=== PATIENT | male | born 1950 | race Caucasian/White ===

== ENCOUNTER 2017-01-29 13:45 | Inpatient (IN) ==
[2017-01-29] MEDS ORDERED: Ipratropium/Albuterol Neb 3 ML IH ONE (14:02)
[2017-01-29] MEDS: 0.9 % Sodium Chloride 1,000 ML IVC SCH ×2 (14:11→15:49)
[2017-01-29 14:21] LABS: Basophils # 0.1 K/mcL (0.0-0.2); Basophils % 1.1 %; Eosinophils # 1.2 K/mcL (0.0-0.6); Eosinophils % 13.3 %; Hematocrit 43.7 % (37.5-50.1); Hemoglobin 15.3 g/dL (12.9-16.9); Immature Granulocytes % 0.2 % (0-4); Lymphocytes # 2.7 K/mcL (0.6-4.6); Lymphocytes % 29.3 %; Mean Corpuscular Hemoglobin 32.3 pg (28.0-33.3); Mean Corpuscular Volume 92.2 fL (83.0-100.0); Mean Platelet Volume 10.2 fL (9.4-12.4); Monocytes # 0.5 K/mcL (0.0-1.3); Monocytes % 5.5 %; Neutrophils # 4.7 K/mcL (1.6-8.9); Platelet Count 313 K/mcL (140-400); Red Blood Count 4.74 M/mcL (4.19-5.50); Red Cell Distribution Width 13.4 % (11.5-14.5); Segmented Neutrophils % 50.6 %
[2017-01-29] MEDS ORDERED: *HR* FentaNYL (PF) 100 MCG/2 ML VIAL IVP ONE (14:33)
[2017-01-29 15:01] LABS: Bilirubin,Urine Negative (Negative); Blood,Urine Negative (Negative); Clarity,Urine Clear (Clear); Color,Urine Yellow (Yellow); Glucose,Urine (UA) Normal (Normal); Ketones,Urine Negative (Negative); Leukocyte Esterase,Urine Negative (Negative); Nitrite,Urine Negative (Negative); Protein,Urine Negative (Neg-Trace); Specific Gravity,Urine 1.005 (1.010-1.025); Urobilinogen,Urine Normal (Normal)
--- NOTE | 2017-01-29 15:18 | Emergency Department Note ---
Disposition Clinical Impression: Acute exacerbation of chronic obstructive airways disease, Mucus plugging of bronchi, Weight loss, Night sweats Disposition: Admitted As Inpatient Condition: Fair Time of Disposition: 17:34 SOB HPI - General Chief Complaint: ED Shortness of Breath/Dyspnea Stated Complaint: JOSIAS Time Seen by Provider: 01/29/17 13:50 Source: patient, family Limitations: no limitations Nursing Notes Reviewed: Yes Vital Signs Reviewed: Yes - History of Present Illness Patient presents to the ED with the chief complaint of shortness of breath. Patient reports that over the past several months he has had gradually increasing shortness of breath. States that he has been evaluated twice, including CT angiography of his chest, which was normal. 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 States that his shortness of breath has been gradually increasing over the last several months, but is getting to the point now where he is losing most of his ability to get up and do the things that he likes to do. He is also been complaining of subjective fever and chills as well as upper Of cough at times. He also has had a 30-40 pound weight loss in this time frame that has been unintentional. He has some nausea and vague abdominal discomfort. States that his stools have also become very thin and pencillike. States that he had a colonoscopy previously, which was normal. He states that he just does not feel well and he feels very rundown and tired. Patient was going to be admitted last time he was here. However, he refused and states he would like to be admitted at this time. - Related Data Home Medications Medication Instructions Recorded Confirmed Cilostazol [Pletal] 100 mg PO BID 11/03/16 01/29/17 Clopidogrel [Plavix] 75 mg PO DAILY 11/03/16 01/29/17 Tizanidine HCl 4 mg PO Q8H PRN 11/03/16 01/29/17 diazePAM [Valium] 20 mg PO 11/03/16 01/29/17 Albuterol Neb [Proventil Neb] 2.5 mg IH Q4HR PRN 12/27/16 01/29/17 Doxepin HCl [Doxepin HCl] 50 - 100 mg PO 12/27/16 01/29/17 Duloxetine HCl [Cymbalta] 60 mg PO DAILY 12/27/16 01/29/17 Lactose-Reduced Food [Ensure 1 bottle PO TID 12/27/16 01/29/17 Liquid] Losartan Potassium [Cozaar] 100 mg PO DAILY 12/27/16 01/29/17 Metoprolol Succinate 100 mg PO DAILY 12/27/16 01/29/17 Oxycodone HCl [Oxycontin] 20 mg PO QAM 12/27/16 01/29/17 Oxycodone HCl [Oxycontin] 40 mg PO QPM 12/27/16 01/29/17 Polyethylene Glycol 3350 [MiraLAX] 17 gm PO DAILY 12/27/16 01/29/17 Albuterol Sulfate [Ventolin Hfa] 2 puff IH Q4H PRN 01/29/17 01/29/17 Allergies Allergy/AdvReac Type Severity Reaction Status Date / Time aspirin Allergy Hives Verified 01/29/17 13:49 buprenorphine Allergy Difficulty Verified 01/29/17 13:50 Swallowing Penicillins Allergy Hives Verified 01/29/17 13:49 All systems ED: reviewed and negative except as stated. Constitutional: Reports: as per HPI, fever, chills, weakness, weight change, night sweats Eyes: Denies: vision change ENT ED: Denies: throat pain, dysphagia Cardiovascular: Denies: chest pain Respiratory: Reports: cough, dyspnea, sputum production. Denies: hemoptysis Gastrointestinal: Reports: as per HPI, abdominal pain, nausea. Denies: vomiting Genitourinary: Denies: dysuria Musculoskeletal: Denies: back pain Integumentary: Denies: rash Neurological: Denies: headache Endocrine: Reports: fatigue Past Medical History - Past Medical History Attestation: Yes The following information was validated with the patient. Source: patient Medical history: Reports: COPD, hypertension Psychiatric history: Reports: anxiety, depression - Social History Smoking Status: Current every day smoker Smokeless Tobacco Status: No Alcohol use: Reports: none Drug use: Reports: none Physical Exam - General Limitations: no limitations General appearance: alert, in no apparent distress, other (appears ill but non- toxic ) - Head Head exam: atraumatic, normocephalic, normal inspection - Eye Eye exam: Present: normal appearance, PERRL, EOMI - ENT ENT exam: normal exam, normal oropharynx, mucous membranes moist - Neck Neck exam: Present: normal inspection, full ROM, trachea midline. Absent: tenderness, meningismus - Chest Chest inspection: Present: normal inspection, symmetric chest wall rise - Respiratory Respiratory exam: Present: respiratory distress (mild ), other (Rhonchi in the left upper lobe and wheezing throughout, mild accessory muscle use and mild tachypnea ). Absent: normal lung sounds bilaterally - Cardiovascular Cardiovascular exam: Present: tachycardia, normal heart sounds - Abdominal Exam Abdominal exam: Present: soft, tenderness, normal bowel sounds. Absent: Non- Tender, distention, guarding, rebound, rigidity Abdominal tenderness: Present: RUQ, epigastrium, mild - Extremities Exam Extremities exam: Present: normal inspection, full ROM, normal capillary refill. Absent: tenderness, pedal edema - Neurological Exam Neurological exam: Present: alert, oriented X3 - Psychiatric Psychiatric exam: Present: normal affect, normal mood - Skin Skin exam: Present: warm, dry, intact, normal color Course Course Narrative: Patient presenting with gradual increasing shortness of breath, weight loss, night sweats, nausea. Has had previous workups which have not revealed any acute abnormality. Patient does appear ill. I am concern over potential malignancy. Could also be related to PE, although he has had a normal CT previously. He is not hypotensive, but is tachycardic. His lungs are very congested, although his chest x-ray is normal. We will await labs and likely obtain further imaging of his chest, abdomen and pelvis. Patient and family are agreeable to plan. Patient will be admitted. - Reevaluation(s) Reevaluation #1: Patient with bilateral mucous plugging, chronic pancreatitis, and distal esophagus mural thickening. Patient also intermittently hypoxic requiring oxygen. We will admit to the hospitalist service with routine pulmonary consult. I do still suspect that the patient could have something else going on and do think inpatient workup would be beneficial. Patient family agreeable to plan Vital Signs Temperature 97.4 F L 01/29/17 13:47 Pulse Rate 102 01/29/17 13:47 Respiratory Rate 22 01/29/17 13:47 Blood Pressure 108/76 01/29/17 13:47 O2 Sat by Pulse Oximetry 95 01/29/17 13:47 Temperature 97.4 F L 01/29/17 13:47 Pulse Rate 73 01/29/17 17:18 Respiratory Rate 18 01/29/17 17:18 Blood Pressure 98/61 01/29/17 17:18 O2 Sat by Pulse Oximetry 96 01/29/17 17:18 Oxygen Delivery Oxygen Delivery Nasal Cannula Shortness of Breath/Dyspnea - Medical Records Medical records reviewed: Yes I reviewed the patient's medical records. - Lab Data Lab results reviewed: Yes I reviewed the patient's lab results. Result diagrams: 01/29/17 14:00 01/29/17 14:00 Lab Results 01/29/17 01/29/17 01/29/17 Range/Units 14:00 14:00 14:00 WBC 9.2 (4.3-11.1) K/mcL RBC 4.74 (4.19-5.50) M/mcL Hgb 15.3 (12.9-16.9) g/dL Hct 43.7 (37.5-50.1) % MCV 92.2 (83.0-100.0) fL MCH 32.3 (28.0-33.3) pg MCHC 35.0 (31.6-35.5) g/dL RDW 13.4 (11.5-14.5) % Plt Count 313 (140-400) K/mcL MPV 10.2 (9.4-12.4) fL Immature Gran % 0.2 (0-4) % Seg Neutrophils % 50.6 % Lymphocytes % 29.3 % Monocytes % 5.5 % Eosinophils % 13.3 % Basophils % 1.1 % Neutrophils # 4.7 (1.6-8.9) K/mcL Lymphocytes # 2.7 (0.6-4.6) K/mcL Monocytes # 0.5 (0.0-1.3) K/mcL Eosinophils # 1.2 H (0.0-0.6) K/mcL Basophils # 0.1 (0.0-0.2) K/mcL Sodium 139 (136-145) mEq/L Potassium 3.3 L (3.5-4.5) mEq/L Chloride 113 H (98-109) mEq/L Carbon Dioxide 16 L (19-29) mEq/L BUN 10 (8-26) mg/dL Creatinine 0.70 L (0.72-1.25) mg/dL Est GFR ( Amer) > 60 (> 60) Est GFR (Non-Af Amer) > 60 (> 60) BUN/Creatinine Ratio 14 (6-26) Glucose 98 (70-99) mg/dL Calculated Osmolality 287 (280-300) Lactic Acid (0.5-2.2) mmol/L Calcium 7.4 L (8.6-10.8) mg/dL Phosphorus 1.9 L (2.3-4.7) mg/dL Magnesium 1.5 L (1.6-2.6) mg/dL Total Bilirubin 0.3 (0.2-1.2) mg/dL Direct Bilirubin 0.2 (0.0-0.5) mg/dL Indirect Bilirubin 0.1 (0.0-1.2) mg/dL AST 11 (5-34) Units/L ALT 10 (0-55) Units/L Alkaline Phosphatase 74 (38-126) Units/L Troponin I (0-0.03) ng/mL B-Natriuretic Peptide (0-100) pg/mL Serum Total Protein 5.5 L (6.0-8.3) g/dL Albumin 3.2 L (3.5-5.0) g/dL Globulin 2.3 L (2.4-3.5) g/dL Albumin/Globulin Ratio 1.4 (1.1-2.2) Lipase 13 (8-78) Units/L Urine Color Yellow (Yellow) Urine Clarity Clear (Clear) Urine pH 7.0 (5.0-8.0) pH Units Ur Specific [place] 1.005 L (1.010-1.025) Urine Protein Negative (Neg-Trace) mg/dL Urine Glucose (UA) Normal (Normal) mg/dL Urine Ketones Negative (Negative) mg/dL Urine Blood Negative (Negative) Urine Nitrite Negative (Negative) Urine Bilirubin Negative (Negative) Urine Urobilinogen Normal (Normal) mg/dL Ur Leukocyte Esterase Negative (Negative) Ur Culture Indicated? NO (NO) 01/29/17 01/29/17 01/29/17 Range/Units 14:00 14:00 14:00 WBC (4.3-11.1) K/mcL RBC (4.19-5.50) M/mcL Hgb (12.9-16.9) g/dL Hct (37.5-50.1) % MCV (83.0-100.0) fL MCH (28.0-33.3) pg MCHC (31.6-35.5) g/dL RDW (11.5-14.5) % Plt Count (140-400) K/mcL MPV (9.4-12.4) fL Immature Gran % (0-4) % Seg Neutrophils % % Lymphocytes % % Monocytes % % Eosinophils % % Basophils % % Neutrophils # (1.6-8.9) K/mcL Lymphocytes # (0.6-4.6) K/mcL Monocytes # (0.0-1.3) K/mcL Eosinophils # (0.0-0.6) K/mcL Basophils # (0.0-0.2) K/mcL Sodium (136-145) mEq/L Potassium (3.5-4.5) mEq/L Chloride (98-109) mEq/L Carbon Dioxide (19-29) mEq/L BUN (8-26) mg/dL Creatinine (0.72-1.25) mg/dL Est GFR ( Amer) (> 60) Est GFR (Non-Af Amer) (> 60) BUN/Creatinine Ratio (6-26) Glucose (70-99) mg/dL Calculated Osmolality (280-300) Lactic Acid 2.1 (0.5-2.2) mmol/L Calcium (8.6-10.8) mg/dL Phosphorus (2.3-4.7) mg/dL Magnesium (1.6-2.6) mg/dL Total Bilirubin (0.2-1.2) mg/dL Direct Bilirubin (0.0-0.5) mg/dL Indirect Bilirubin (0.0-1.2) mg/dL AST (5-34) Units/L ALT (0-55) Units/L Alkaline Phosphatase (38-126) Units/L Troponin I 0.00 (0-0.03) ng/mL B-Natriuretic Peptide 22 (0-100) pg/mL Serum Total Protein (6.0-8.3) g/dL Albumin (3.5-5.0) g/dL Globulin (2.4-3.5) g/dL Albumin/Globulin Ratio (1.1-2.2) Lipase (8-78) Units/L Urine Color (Yellow) Urine Clarity (Clear) Urine pH (5.0-8.0) pH Units Ur Specific [place] (1.010-1.025) Urine Protein (Neg-Trace) mg/dL Urine Glucose (UA) (Normal) mg/dL Urine Ketones (Negative) mg/dL Urine Blood (Negative) Urine Nitrite (Negative) Urine Bilirubin (Negative) Urine Urobilinogen (Normal) mg/dL Ur Leukocyte Esterase (Negative) Ur Culture Indicated? (NO) 01/29/17 Range/Units 15:55 WBC (4.3-11.1) K/mcL RBC (4.19-5.50) M/mcL Hgb (12.9-16.9) g/dL Hct (37.5-50.1) % MCV (83.0-100.0) fL MCH (28.0-33.3) pg MCHC (31.6-35.5) g/dL RDW (11.5-14.5) % Plt Count (140-400) K/mcL MPV (9.4-12.4) fL Immature Gran % (0-4) % Seg Neutrophils % % Lymphocytes % % Monocytes % % Eosinophils % % Basophils % % Neutrophils # (1.6-8.9) K/mcL Lymphocytes # (0.6-4.6) K/mcL Monocytes # (0.0-1.3) K/mcL Eosinophils # (0.0-0.6) K/mcL Basophils # (0.0-0.2) K/mcL Sodium (136-145) mEq/L Potassium (3.5-4.5) mEq/L Chloride (98-109) mEq/L Carbon Dioxide (19-29) mEq/L BUN (8-26) mg/dL Creatinine (0.72-1.25) mg/dL Est GFR ( Amer) (> 60) Est GFR (Non-Af Amer) (> 60) BUN/Creatinine Ratio (6-26) Glucose (70-99) mg/dL Calculated Osmolality (280-300) Lactic Acid 0.9 (0.5-2.2) mmol/L Calcium (8.6-10.8) mg/dL Phosphorus (2.3-4.7) mg/dL Magnesium (1.6-2.6) mg/dL Total Bilirubin (0.2-1.2) mg/dL Direct Bilirubin (0.0-0.5) mg/dL Indirect Bilirubin (0.0-1.2) mg/dL AST (5-34) Units/L ALT (0-55) Units/L Alkaline Phosphatase (38-126) Units/L Troponin I (0-0.03) ng/mL B-Natriuretic Peptide (0-100) pg/mL Serum Total Protein (6.0-8.3) g/dL Albumin (3.5-5.0) g/dL Globulin (2.4-3.5) g/dL Albumin/Globulin Ratio (1.1-2.2) Lipase (8-78) Units/L Urine Color (Yellow) Urine Clarity (Clear) Urine pH (5.0-8.0) pH Units Ur Specific [place] (1.010-1.025) Urine Protein (Neg-Trace) mg/dL Urine Glucose (UA) (Normal) mg/dL Urine Ketones (Negative) mg/dL Urine Blood (Negative) Urine Nitrite (Negative) Urine Bilirubin (Negative) Urine Urobilinogen (Normal) mg/dL Ur Leukocyte Esterase (Negative) Ur Culture Indicated? (NO) - Radiology Data Radiology results reviewed: Yes I reviewed the patient's radiology results. Chest X-Ray 01/29/17 14:00 IMPRESSION: No acute cardiopulmonary disease. D/ / Alin Kovacs MD / Alin Kovacs MD Interpreting Provider: Alin Kovacs MD Abdomen/Pelvis CT 01/29/17 15:54 IMPRESSION: 1. No CT evidence for acute intra-abdominal process. 2. Findings suggestive of chronic pancreatitis, clinical correlation is recommended. No findings acute pancreatitis. D/ / Osito Allison / Osito Allison Interpreting Provider: Osito Allison Chest CTA 01/29/17 15:54 IMPRESSION: 1. No evidence of pulmonary embolism or aortic dissection. 2. Evidence of bilateral mucous plugging along with bronchial wall thickening. Correlate with clinical evidence of bronchitis. 3. Borderline enlarged mediastinal lymph nodes, probably reactive, but follow-up of those to resolution should be performed. 4. There is suggestion of mural thickening of the esophagus, especially inferiorly, and greatest at the gastroesophageal junction. This is probably related to reflux esophagitis. However, direct visualization is recommended. D/ / Alberto Monzon MD / Alberto Monzon MD Interpreting Provider: Alberto Monzon MD - EKG Data EKG attestation: Yes I reviewed and interpreted this EKG. EKG results narrative: Sinus rhythm, rate 87, PA interval 146, QRS 89, QTC 395, normal axis, no acute ischemic changes Attestation Statement - Attestation Attestation: I, Papo Francis DO, examined this patient [id number] and my medical decision-making was reviewed with Dr. Olvin Rahman, Resident Physician. I agree with the documented findings, disposition and treatment plan as described except to the extent set forth below. Please see my progress notes for details. 66-year-old male presents emergency room complaining of shortness of breath and productive sputum. He said the symptoms coming on over the last several days. His chronic medical issues secondary to respiratory disease. He had chemical- induced burgers syndrome. Patient denies any other trauma or injuries at this point. Vital signs were concerning for tachycardia tachypnea and hypoxia initially on presentation. Patient had sepsis workup completed as well as imaging studies her chest and abdomen secondary to a 30-40 pound weight loss. Lungs do coarse breath sounds left side heart is tachycardic no murmurs noted. Abdomen soft no guarding no rigidity. Patient otherwise will medical management started this time including breathing treatments steroids and antibiotics will be ordered once we have definitive infectious source. Patient has long-standing vascular issues requiring bilateral lower extremity above-the- knee amputations. Oral mostly in admission to hospital for definitive management. We will continue to monitor his treatment course is completed. CT imaging labs and detailed workup to be completed and documented. See detailed documentation of physical exam, medical intervention, medical decision-making, consultations and disposition in the resident physician's note
[2017-01-29 15:53] LABS: Alanine Aminotransferase 10 Units/L (0-55); Albumin 3.2 g/dL (3.5-5.0); Albumin/Globulin Ratio 1.4 (1.1-2.2); Alkaline Phosphatase 74 Units/L (38-126); Aspartate Amino Transferase 11 Units/L (5-34); BUN/Creatinine Ratio 14 (6-26); Bilirubin,Direct 0.2 mg/dL (0.0-0.5); Bilirubin,Indirect 0.1 mg/dL (0.0-1.2); Bilirubin,Total 0.3 mg/dL (0.2-1.2); Blood Urea Nitrogen 10 mg/dL (8-26); Calcium 7.4 mg/dL (8.6-10.8); Carbon Dioxide 16 mEq/L (19-29); Chloride 113 mEq/L (98-109); Globulin 2.3 g/dL (2.4-3.5); Glucose 98 mg/dL (70-99); Lipase 13 Units/L (8-78); Magnesium 1.5 mg/dL (1.6-2.6); Osmolality,Calculated 287 (280-300); Phosphorous 1.9 mg/dL (2.3-4.7); Potassium 3.3 mEq/L (3.5-4.5); Sodium 139 mEq/L (136-145); Total Protein 5.5 g/dL (6.0-8.3); eGFR For African Americans > 60 (> 60); eGFR For Non-African Americans > 60 (> 60)
[2017-01-29] MEDS ORDERED: 0.9 % Sodium Chloride 500 ML IVC ONE (20:40)
[2017-01-29] MEDS ORDERED: tiZANidine 4 MG TABLET PO PRN (21:17)
--- NOTE | 2017-01-29 21:26 | Internal Med History&Physical ---
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 (2) Acute exacerbation of chronic obstructive airways disease Current visit: Yes Status: Acute We will start the patient and IV steroids nebulizer treatments and levofloxacin intravenously (3) Weight loss Current visit: Yes Status: Acute will need to look for underlying malignancy. Patient has multiple lymph nodes unchanged from previous maybe active however he will need to see pulmonology for those. There is also some thickening in the lower part of the esophagus, although likely due to reflux but direct visualization may be needed so we need to see gastroenterology as an outpatient. He had a colonoscopy 7 years ago was unremarkable according to him. Internal Medicine - H&P: HPI Chief complaint: SOB History of present illness: Mr. Enriquez is a 66 year old male with multiple medical problems including COPD not on home oxygen, burger disease with lower extremity amputation, hypertension presents to the emergency room today with a main complain all shortness of breath. This shortness of breath has been going on for the past few months. He has been having productive cough of scant yellow sputum, just wheezing and progressive shortness of breath to the point where he short of breath with any minimal exertion. He has subjected chills. He still smokes. Patient also mentioned that he has lost 50 pounds during the past nine-month period. His appetite has been declining. Past Med Surg Social Fam HX - Past Medical History Medical history: COPD, hypertension Psychiatric history: anxiety, depression - Social History Smoking Status: Current every day smoker Smokeless Tobacco Status: No Alcohol use: none Drug use: none - Family History Father Living Status: Age at : 78 Cause of : deterioration after hip fracture Hx Family Cardiac Disorders: No Hx Family Respiratory Disorders: Yes Hx Family Cancer: (possibly) Hx Family Endocrine Disorder: No Hx Family Medical Disorders: Yes Internal Medicine - H&P: Meds Cilostazol [Pletal] 100 mg PO BID 11/03/16 [History] Clopidogrel [Plavix] 75 mg PO DAILY 11/03/16 [History] Tizanidine HCl 4 mg PO Q8H PRN 11/03/16 [History] diazePAM [Valium] 20 mg PO HS 11/03/16 [History] Albuterol Neb [Proventil Neb] 2.5 mg IH Q4HR PRN 12/27/16 [History] Doxepin HCl [Doxepin HCl] 50 - 100 mg PO HS 12/27/16 [History] Duloxetine HCl [Cymbalta] 60 mg PO DAILY 12/27/16 [History] Lactose-Reduced Food [Ensure Liquid] 1 bottle PO TID 12/27/16 [History] Losartan Potassium [Cozaar] 100 mg PO DAILY 12/27/16 [History] Metoprolol Succinate 100 mg PO DAILY 12/27/16 [History] Oxycodone HCl [Oxycontin] 20 mg PO QAM 12/27/16 [History] Oxycodone HCl [Oxycontin] 40 mg PO QPM 12/27/16 [History] Polyethylene Glycol 3350 [MiraLAX] 17 gm PO DAILY 12/27/16 [History] Albuterol Sulfate [Ventolin Hfa] 2 puff IH Q4H PRN 01/29/17 [History] 3 Allergy/AdvReac Type Severity Reaction Status Date / Time aspirin Allergy Hives Verified 01/29/17 13:49 buprenorphine Allergy Difficulty Verified 01/29/17 13:50 Swallowing Penicillins Allergy Hives Verified 01/29/17 13:49 All Systems PM: A 10-system review of systems was performed and is negative for pertinent findings except as documented above in the HPI. Review of systems: 10 point review of systems is negative except for HPI - Constitutional Vitals: Temp Pulse Resp BP Pulse Ox 98.3 F 70 19 98/63 95 01/29/17 19:45 01/29/17 19:45 01/29/17 19:45 01/29/17 19:45 01/29/17 19:45 Exam: Gen.: patient is alert oriented times 3 not in distress. Cardiac: normal S1 S2 no additional sounds or murmurs chest: diminished air entry, diffuse expiratory wheezing abdomen: soft nontender nondistended normal bowel sounds neuro: no focal deficit Internal Med - H&P Results - Labs CBC & Chem 7: 01/29/17 14:00 01/29/17 14:00
[2017-01-29] MEDS ORDERED: Ibuprofen 600 MG TABLET PO ONE (21:40)
[2017-01-29] MEDS: traMADol 50 MG TABLET PO PRN (22:28)
[2017-01-29] MEDS: *HR* OxyCODONE ER (12 HR) 20 MG TABLET PO SCH (22:29)
[2017-01-29] MEDS: Ipratropium/Albuterol Neb 3 ML IH SCH (23:41)
[2017-01-29] MEDS ORDERED: 0.9 % Sodium Chloride 1,000 ML IVC ONE (23:50)
[2017-01-30] MEDS: methylPREDNISolone 125 MG/2 ML VIAL IVP SCH ×4 (00:47→16:54)
[2017-01-30] MEDS: diazePAM 10 MG TABLET PO SCH (00:48)
[2017-01-30] MEDS: Ipratropium/Albuterol Neb 3 ML IH SCH ×5 (04:13→20:50)
[2017-01-30 04:35] LABS: Basophils # 0.1 K/mcL (0.0-0.2); Basophils % 0.9 %; Eosinophils # 0.4 K/mcL (0.0-0.6); Eosinophils % 5.1 %; Hematocrit 39.2 % (37.5-50.1); Immature Granulocytes % 0.3 % (0-4); Lymphocytes # 1.2 K/mcL (0.6-4.6); Lymphocytes % 15.4 %; Mean Corpuscular HGB Conc 34.2 g/dL (31.6-35.5); Mean Corpuscular Hemoglobin 32.5 pg (28.0-33.3); Mean Corpuscular Volume 95.1 fL (83.0-100.0); Mean Platelet Volume 10.2 fL (9.4-12.4); Monocytes # 0.1 K/mcL (0.0-1.3); Monocytes % 1.9 %; Neutrophils # 5.8 K/mcL (1.6-8.9); Platelet Count 261 K/mcL (140-400); Red Blood Count 4.12 M/mcL (4.19-5.50); Red Cell Distribution Width 13.8 % (11.5-14.5); Segmented Neutrophils % 76.4 %
[2017-01-30 04:36] LABS: Hemoglobin 13.4 g/dL (12.9-16.9)
[2017-01-30 04:52] LABS: BUN/Creatinine Ratio 16 (6-26); Blood Urea Nitrogen 13 mg/dL (8-26); Calcium 8.8 mg/dL (8.6-10.8); Carbon Dioxide 24 mEq/L (19-29); Chloride 109 mEq/L (98-109); Glucose 115 mg/dL (70-99); Magnesium 2.1 mg/dL (1.6-2.6); Osmolality,Calculated 285 (280-300); Potassium 4.8 mEq/L (3.5-4.5); Sodium 137 mEq/L (136-145); eGFR For African Americans > 60 (> 60); eGFR For Non-African Americans > 60 (> 60)
[2017-01-30] MEDS ORDERED: Metoprolol XL (24 HR) Succ 50 MG TAB.ER.24H PO SCH (09:00)
[2017-01-30] MEDS ORDERED: NON-FORMULARY MEDICATION 1 EACH EACH (Lactose-Reduced Food [Ensure Liquid] 1 BOTTLE) PO SCH (09:00)
[2017-01-30] MEDS: *HR* OxyCODONE ER (12 HR) 20 MG TABLET PO SCH ×2 (09:43→16:55)
[2017-01-30] MEDS: traMADol 50 MG TABLET PO PRN ×2 (11:10→22:07)
--- NOTE | 2017-01-30 11:29 | Internal Med Progress Note ---
<Rayshawn Ramsey - Last Filed: 01/30/17 11:24> Date of Encounter: 01/30/17 Time of Encounter: 11:24 - Assessment and plan (1) Acute exacerbation of chronic obstructive airways disease Current Visit: Yes Status: Acute Assessment and plan: states sob improved. continue abx, steroids levaquin, nebulizers and inhalers. continue supplemetal O2 start mucinex, symbicort CTA chest negative for PE or dissection b/l mucous plugging and bronchial wall thickening pulmonology consulted. (2) Weight loss Current Visit: Yes Status: Acute Assessment and plan: reports 60 pound weight loss. last colonoscopy was 7 years ago and states there were no polyps found reports decreased appetite. CTA shows mural thickening of esophagus. Denies previous EGD. WIll need one but currently due to respiratory status likely unable to complete. ensure tid. regular diet. (3) Buerger disease Current Visit: Yes Status: Acute Assessment and plan: hx of buerger disease b/l BKA no evidence of ulcers on fingers states he has not had any flare ups since 2000 continue cilostazol, palvix. continues to smoke. (4) Tobacco abuse Current Visit: Yes Status: Acute Assessment and plan: hx of tobacco abuse continues to smoke states he is smoking 4-6 cigarette. counseled on smoking cessation. - Subjective Interval history: Reports he is able to take a deeper breath in today. He still has burning pain with inspiration and headache. He reports dry cough. Patient states he has lost 50 pounds since last winter. He denies hx of cancer in family. Denies chest pain, palpitations, abdominal pain, N/V, LE pain. - Constitutional Vitals: Temp Pulse Resp BP Pulse Ox 98.0 F 84 15 114/64 93 01/30/17 06:29 01/30/17 06:29 01/30/17 08:17 01/30/17 06:29 01/30/17 08:17 General appearance: Present: A&O X 3 - Head Head exam: Present: atraumatic, normocephalic - Eye Eye exam: Present: PERRL, conjuntiva pink, sclera anicteric - Neck Neck exam general surgery: Present: supple, trachea midline. Absent: lymphadenopathy - Respiratory Respiratory exam: Present: accessory muscle use, decreased breath sounds, rales , rhonchi, wheezes - Cardiovascular Cardiovascular exam: Present: RRR, +S1, +S2. Absent: diastolic murmur, gallop, rubs, systolic murmur - GI/Abdominal GI/Abdominal exam: Present: normal bowel sounds, soft, no peritoneal signs. Absent: distended, tenderness - Extremities Exam Extremities exam: Present: warm, radial pulses palpable and symmetrical. Absent : calf tenderness, cyanotic Additional comments: b/l below the knee amputation. - Neurological Exam Neurological exam: Present: CN II-XII intact, oriented X3, no focal deficits. Absent: pronater drift, facial droop, speech deficit - Skin Skin exam: Present: dry, intact Internal Medicine: Result - Labs CBC & Chem 7: 01/30/17 04:23 01/30/17 04:23 Labs: Short CBC 01/30/17 Range/Units 04:23 WBC 7.5 (4.3-11.1) K/mcL Hgb 13.4 D (12.9-16.9) g/dL Hct 39.2 (37.5-50.1) % Plt Count 261 (140-400) K/mcL Neutrophils # 5.8 (1.6-8.9) K/mcL BMP 01/30/17 04:23 Sodium 137 Potassium 4.8 H D Chloride 109 Carbon Dioxide 24 BUN 13 Creatinine 0.83 Glucose 115 H Calcium 8.8 D Consult Discharge Plan - Plan Referrals: Gwendolyn Hamilton MD [Primary Care Provider] - <Mario Ogden - Last Filed: 01/30/17 17:38> Date of Encounter: 01/30/17 - Assessment and plan (1) Acute exacerbation of chronic obstructive airways disease Current Visit: Yes Status: Acute (2) Buerger disease Current Visit: Yes Status: Acute (3) Weight loss Current Visit: Yes Status: Acute (4) Tobacco abuse Current Visit: Yes Status: Acute - Constitutional Vitals: Temp Pulse Resp BP Pulse Ox 98.2 F 103 15 115/70 94 01/30/17 15:00 01/30/17 15:00 01/30/17 16:13 01/30/17 15:00 01/30/17 16:13 Internal Medicine: Result - Labs CBC & Chem 7: 01/30/17 04:23 01/30/17 04:23 Labs: Short CBC 01/30/17 Range/Units 04:23 WBC 7.5 (4.3-11.1) K/mcL Hgb 13.4 D (12.9-16.9) g/dL Hct 39.2 (37.5-50.1) % Plt Count 261 (140-400) K/mcL Neutrophils # 5.8 (1.6-8.9) K/mcL BMP 01/30/17 04:23 Sodium 137 Potassium 4.8 H D Chloride 109 Carbon Dioxide 24 BUN 13 Creatinine 0.83 Glucose 115 H Calcium 8.8 D - Attending Attestation I examined this patient and my medical decision-making was reviewed with the Resident Physician on 01/30/17. I agree with the documented findings, disposition and treatment plan as described except to the extent set forth below. Mr. Enriquez is currently admitted for acute exac COPD and hypoxia. He remains moderate to high risk due to potential for worsening respiratory status. Mr. Enriquez is doing OK at this time. His breathing is a little better. No fever or chills. Lots of congestion in chest. No GI issues. Exam alert. Comfortable Mucus membranes dry Heart not tachy. Lungs with rhonchi bilaterally. No wheeze currently. Abd soft. I/P 1. Exac COPD 2. Bergers Further diagnoses and plan as above.
[2017-01-30] MEDS: *HR* Heparin 5,000 UNIT/ML VIAL SQ SCH ×2 (13:42→22:08)
--- NOTE | 2017-01-30 18:49 | Electrocardiograph Report ---
[place] [address] Test Date: 2017-01-29 Pat Name: Homer Enriquez Department: 103 Room: 2N4 Gender: M Drainlayer: EKP : 1950 Requested By: Olvin Rahman Order Number: [id number] Reading MD: Luis Antonio Eldridge MD Measurements Intervals [place] Rate: 87 P: 73 HI: 146 QRS: 75 QRSD: 89 T: 47 QT: 350 QTc: 395 Interpretive Statements SINUS RHYTHM Electronically Signed On 01-30-2017 18:47:46 EDT by Luis Antonio Eldridge MD
[2017-01-30] MEDS: Acetylcysteine 10% 2 ML INHSOL IH SCH (20:50)
[2017-01-30] MEDS: Budesonide/Formoterol 160/4.5 MDI IH SCH (20:51)
[2017-01-31] MEDS: diazePAM 10 MG TABLET PO SCH ×2 (00:13→20:44)
[2017-01-31] MEDS: methylPREDNISolone 125 MG/2 ML VIAL IVP SCH ×5 (00:13→22:58)
[2017-01-31] MEDS: Ipratropium/Albuterol Neb 3 ML IH SCH ×7 (00:39→23:20)
[2017-01-31] MEDS: Acetylcysteine 10% 2 ML INHSOL IH SCH ×7 (00:40→23:20)
[2017-01-31 02:33] LABS: BUN/Creatinine Ratio 26 (6-26); Blood Urea Nitrogen 22 mg/dL (8-26); Carbon Dioxide 22 mEq/L (19-29); Chloride 107 mEq/L (98-109); Glucose 163 mg/dL (70-99); Osmolality,Calculated 293 (280-300); Potassium 4.6 mEq/L (3.5-4.5); Sodium 138 mEq/L (136-145); eGFR For African Americans > 60 (> 60); eGFR For Non-African Americans > 60 (> 60)
[2017-01-31] MEDS: *HR* Heparin 5,000 UNIT/ML VIAL SQ SCH ×3 (05:42→20:45)
[2017-01-31] MEDS: Budesonide/Formoterol 160/4.5 MDI IH SCH ×2 (07:57→19:55)
[2017-01-31] MEDS: *HR* OxyCODONE ER (12 HR) 20 MG TABLET PO SCH ×2 (09:10→17:55)
[2017-01-31] MEDS: Levofloxacin 750 MG/150 ML 750 MG/150 ML BAG IVPB SCH (09:11)
[2017-01-31] MEDS ORDERED: Orphenadrine 60 MG/2 ML VIAL IVP ONE (10:26)
[2017-01-31] MEDS: traMADol 50 MG TABLET PO PRN (12:12)
--- NOTE | 2017-01-31 15:00 | Internal Med Progress Note ---
<Rayshawn Ramsey - Last Filed: 01/31/17 15:02> Date of Encounter: 01/31/17 Time of Encounter: 14:58 - Assessment and plan (1) Acute exacerbation of chronic obstructive airways disease Current Visit: Yes Status: Acute Assessment and plan: states sob improved. continue abx, steroids levaquin, nebulizers and inhalers. Still requiring O2 supplementation. start mucinex, symbicort CTA chest negative for PE or dissection b/l mucous plugging and bronchial wall thickening (2) Weight loss Current Visit: Yes Status: Acute Assessment and plan: reports 60 pound weight loss. last colonoscopy was 7 years ago and states there were no polyps found reports decreased appetite. CTA shows mural thickening of esophagus. Denies previous EGD. Consult GI. ensure tid. regular diet. (3) Buerger disease Current Visit: Yes Status: Acute Assessment and plan: hx of buerger disease b/l BKA no evidence of ulcers on fingers states he has not had any flare ups since 2000 continue cilostazol, palvix. continues to smoke. (4) Tobacco abuse Current Visit: Yes Status: Acute Assessment and plan: hx of tobacco abuse continues to smoke states he is smoking 4-6 cigarette. counseled on smoking cessation. - Subjective Interval history: Shortness of breath improved however still requiring oxygen. Reports headache. Denies chest pain, palpitations, abdominal pain, N/V, LE pain. - Constitutional Vitals: Temp Pulse Resp BP Pulse Ox 98.0 F 113 18 121/63 95 01/31/17 11:35 01/31/17 11:35 01/31/17 11:35 01/31/17 11:35 01/31/17 11:35 General appearance: Present: A&O X 3 - Neck Neck exam general surgery: Present: supple, trachea midline. Absent: lymphadenopathy - Respiratory Additional comments: Bilateral wheezing, rhonchi. - Cardiovascular Cardiovascular exam: Present: +S1, +S2, tachycardia. Absent: diastolic murmur, gallop, rubs, systolic murmur - GI/Abdominal GI/Abdominal exam: Present: normal bowel sounds, soft, no peritoneal signs. Absent: distended, tenderness - Extremities Exam Additional comments: Bilateral below the knee amputation Internal Medicine: Result - Labs CBC & Chem 7: 01/30/17 04:23 01/31/17 01:55 Labs: BMP 01/31/17 01:55 Sodium 138 Potassium 4.6 H Chloride 107 Carbon Dioxide 22 BUN 22 Creatinine 0.85 Glucose 163 H Calcium 9.0 Consult Discharge Plan - Plan Referrals: Gwendolyn Hamilton MD [Primary Care Provider] - <Mario Ogden - Last Filed: 01/31/17 16:09> Date of Encounter: 01/31/17 - Assessment and plan (1) Acute respiratory failure with hypoxia Current Visit: Yes Status: Acute (2) Acute exacerbation of chronic obstructive airways disease Current Visit: Yes Status: Acute (3) Buerger disease Current Visit: Yes Status: Acute (4) Weight loss Current Visit: Yes Status: Acute (5) Tobacco abuse Current Visit: Yes Status: Acute - Constitutional Vitals: Temp Pulse Resp BP Pulse Ox 98.0 F 113 18 121/63 95 01/31/17 11:35 01/31/17 11:35 01/31/17 11:35 01/31/17 11:35 01/31/17 11:35 Internal Medicine: Result - Labs CBC & Chem 7: 01/30/17 04:23 01/31/17 01:55 Labs: BMP 01/31/17 01:55 Sodium 138 Potassium 4.6 H Chloride 107 Carbon Dioxide 22 BUN 22 Creatinine 0.85 Glucose 163 H Calcium 9.0 - Attending Attestation I examined this patient and my medical decision-making was reviewed with the Resident Physician on 01/31/17. I agree with the documented findings, disposition and treatment plan as described except to the extent set forth below. Mr Enriquez is currently admitted for acute exac COPD/acute hypoxia. He remains moderate to high risk due to potential for worsening respiratory status. Mr Enriquez has a bitemporal headache. He cannot take ASA or NSAIDS. No fever or chills. No nausea. Breathing somewhat better today. Exam Alert. Comfortable Mucus membranes dry Heart reg- slightly tachy Lungs with few rhonchi Abd soft I/P 1. Acute hypoxic resp failure 2. Acute exac COPD Further diagnoses and plan as above.
--- NOTE | 2017-01-31 15:44 | Gastroenterology Consult Note ---
Date of Encounter: 01/31/17 Time of Encounter: 09:00 - Time Spent With Patient Total time spent is greater than 50% in coordination of care (as documented) at patient's floor/unit and/or counseling patient: GI History of Present Illness - Data of Consult Patient: new to practice Consult date: 01/31/17 Requesting Physician: Mario Ogden, DO - Consult Narrative Reason for consult: abdominal pain History of present illness: Mr. Enriquez is a 66 year old male who presented with abdominal pain following 7 episodes of vomiting on Tuesday. He reports he had a few alcoholic beverages on Tuesday. He has a PMhx of mitral valve replacement and is on coumadin at home. [place]ase [place] [address] and is now down to 519. He denies any diarrhea or consipation. He denies bloody stools. He denies sick contacts. He had low grade fever. CT abdomen showed acute pancreatitis vs duodenitis. US abdomen showed gall bladder polyp and wall thickening. Colonoscopy: 11 years ago EGD: denies Nsaids: none ASA: none Anticoagulants: coumadin. Past Med Surg Social Fam HX - Past Medical History Medical history: COPD, hypertension Psychiatric history: anxiety, depression - Social History Smoking Status: Current every day smoker Smokeless Tobacco Status: No Alcohol use: none Drug use: none - Family History Father Living Status: Age at : 78 Cause of : deterioration after hip fracture Hx Family Cardiac Disorders: No Hx Family Respiratory Disorders: Yes Hx Family Cancer: (possibly) Hx Family Endocrine Disorder: No Hx Family Medical Disorders: Yes - Constitutional Vitals: Temp Pulse Resp BP Pulse Ox 98.0 F 113 18 121/63 95 01/31/17 11:35 01/31/17 11:35 01/31/17 11:35 01/31/17 11:35 01/31/17 11:35 Results - Labs CBC & Chem 7: 01/30/17 04:23 01/31/17 01:55 Labs: Last Result Calcium 9.0 mg/dL (8.6-10.8) 01/31/17 01:55 Troponin I 0.00 ng/mL (0-0.03) 01/29/17 14:00 Entire Visit Hgb 13.4 g/dL (12.9-16.9) D 01/30/17 04:23 Hct 39.2 % (37.5-50.1) 01/30/17 04:23 Total Bilirubin 0.3 mg/dL (0.2-1.2) 01/29/17 14:00 AST 11 Units/L (5-34) 01/29/17 14:00 ALT 10 Units/L (0-55) 01/29/17 14:00 Lipase 13 Units/L (8-78) 01/29/17 14:00 Consult Discharge Plan - Plan Referrals: Gwendolyn Hamilton MD [Primary Care Provider] -
[2017-02-01] MEDS: Ipratropium/Albuterol Neb 3 ML IH SCH ×6 (03:55→23:49)
[2017-02-01] MEDS: Acetylcysteine 10% 2 ML INHSOL IH SCH ×6 (03:55→23:50)
[2017-02-01] MEDS: *HR* Heparin 5,000 UNIT/ML VIAL SQ SCH ×3 (04:18→20:26)
[2017-02-01] MEDS: methylPREDNISolone 125 MG/2 ML VIAL IVP SCH ×2 (04:18→11:12)
[2017-02-01] MEDS: traMADol 50 MG TABLET PO PRN ×3 (04:18→20:31)
[2017-02-01 05:46] LABS: Basophils % 0.1 %; Immature Granulocytes % 1.3 % (0-4); Lymphocytes % 5.5 %; Mean Corpuscular HGB Conc 33.2 g/dL (31.6-35.5); Mean Corpuscular Hemoglobin 32.1 pg (28.0-33.3); Mean Corpuscular Volume 96.6 fL (83.0-100.0); Mean Platelet Volume 10.3 fL (9.4-12.4); Monocytes # 0.6 K/mcL (0.0-1.3); Monocytes % 3.2 %; Platelet Count 236 K/mcL (140-400); Red Blood Count 3.52 M/mcL (4.19-5.50); Red Cell Distribution Width 14.3 % (11.5-14.5); Segmented Neutrophils % 89.9 %
[2017-02-01 05:48] LABS: Hemoglobin 11.3 g/dL (12.9-16.9)
[2017-02-01 06:07] LABS: BUN/Creatinine Ratio 28 (6-26); Blood Urea Nitrogen 20 mg/dL (8-26); Calcium 8.8 mg/dL (8.6-10.8); Carbon Dioxide 26 mEq/L (19-29); Chloride 107 mEq/L (98-109); Glucose 132 mg/dL (70-99); Osmolality,Calculated 296 (280-300); Potassium 4.7 mEq/L (3.5-4.5); Sodium 141 mEq/L (136-145); eGFR For African Americans > 60 (> 60); eGFR For Non-African Americans > 60 (> 60)
[2017-02-01] MEDS: Budesonide/Formoterol 160/4.5 MDI IH SCH ×2 (09:30→23:49)
[2017-02-01] MEDS: *HR* OxyCODONE ER (12 HR) 20 MG TABLET PO SCH ×2 (11:13→17:10)
[2017-02-01] MEDS: Levofloxacin 750 MG/150 ML 750 MG/150 ML BAG IVPB SCH (11:13)
--- NOTE | 2017-02-01 11:43 | Gastroenterology Consult Note ---
<Fariba Singh - Last Filed: 02/01/17 11:35> Date of Encounter: 02/01/17 Time of Encounter: 10:00 - Assessment and plan (1) Abnormal CT scan, esophagus Current Visit: Yes Status: Acute Assessment and plan: Pt presented with respiratory symptoms. He was found to have mural thickening of esophagus on CTA chest. He denies dysphagia or GERD symptoms. He is on prilosec. He needs EGD. He will likely also need screening colonoscopy. - Time Spent With Patient Total time spent is greater than 50% in coordination of care (as documented) at patient's floor/unit and/or counseling patient: GI History of Present Illness - Data of Consult Patient: new to practice Consult date: 02/01/17 Requesting Physician: Mario Ogden DO - Consult Narrative Reason for consult: mural thickening of esophagus History of present illness: Mr. Enriquez is a 66 year old male who presented with shortness of breath. He has a pmhx of Buerger disease, and COPD. CTA chest showed mucus plugs, with possible reactive adenopathy and mural thickening of the esophagus. CT abdomen was done and showed multiple punctate calcifications of the pacreas. He denies any dysphagia, GERD, abdominal pain, nausea, vomiting or diarrhea. He has occasional constipation last BM was yesterday. He denies bloody emesis or stools. He does admit to poor appetite and has lost 50 pounds in the past year. He has bilateral BKA and ambulates with prosthesis. Labs showed Hgb 11.3, WBC 17.8, ALB 3.2, PLT 236, T Bili 0.3, AST 11 ALT 10. Colonoscopy: ~10 years ago (Dr Terry) EGD: denies NSAIDS: denies, allergy ASA: denies Anticougulants: pletal and plavix Past Med Surg Social Fam HX - Past Medical History Medical history: COPD, hypertension Psychiatric history: anxiety, depression - Social History Smoking Status: Current every day smoker Smokeless Tobacco Status: No Alcohol use: none Drug use: none - Family History Father Living Status: Age at : 78 Cause of : deterioration after hip fracture Hx Family Cardiac Disorders: No Hx Family Respiratory Disorders: Yes Hx Family Cancer: (possibly) Hx Family Endocrine Disorder: No Hx Family Medical Disorders: Yes Review of Systems: GI: as per [facility] GENERAL: denies fever, has some chills EYES: denies yellow discoloration ENT: denies pain with swallowing or difficulty swallowing CARDIO: denies chest pain, palpitations RESP: chronic shortness of breath with exertion : denies change in color of urine NEURO: denies any weakness HEME: Denies any bruising MS: chronic joint pain, and back pain, bilateral BKA. DERM: denies rash or itching PSYCH: Denies history of anxiety or depression - Constitutional Vitals: Temp Pulse Resp BP Pulse Ox 97.6 F 77 14 123/65 95 02/01/17 06:24 02/01/17 06:24 02/01/17 09:33 02/01/17 06:24 02/01/17 09:33 Exam: CONSTITUTIONAL:~alert, no acute distress.~HEAD:~normocephalic.~EYES:~no jaundice.~NECK:~no obvious swelling.~HEART:~regular rate and rhythm, no murmurs. ~LUNGS:~bilateral fair air entry.~ABDOMEN:~non distended, soft, non tender, no masses pulpable, no organomegaly.~RECTAL EXAM:~Deferred.~EXTREMITIES:~no clubbing, cyanosis or edema, BL BKA~SKIN:~no stigmata of chronic liver disease.~ NEUROLOGIC:~no obvious focal defect.~~~~ Results - Labs CBC & Chem 7: 02/01/17 05:36 02/01/17 05:36 Labs: Last Result Calcium 8.8 mg/dL (8.6-10.8) 02/01/17 05:36 Troponin I 0.00 ng/mL (0-0.03) 01/29/17 14:00 Entire Visit Hgb 11.3 g/dL (12.9-16.9) L D 02/01/17 05:36 Hct 34.0 % (37.5-50.1) L 02/01/17 05:36 Total Bilirubin 0.3 mg/dL (0.2-1.2) 01/29/17 14:00 AST 11 Units/L (5-34) 01/29/17 14:00 ALT 10 Units/L (0-55) 01/29/17 14:00 Lipase 13 Units/L (8-78) 01/29/17 14:00 Consult Discharge Plan - Plan Referrals: Gwendolyn Hamilton MD [Primary Care Provider] - <Vinod Maxwell - Last Filed: 02/01/17 17:53> Date of Encounter: 02/01/17 Time of Encounter: 17:25 - Time Spent With Patient Total time spent is greater than 50% in coordination of care (as documented) at patient's floor/unit and/or counseling patient: GI History of Present Illness - Data of Consult Requesting Physician: Mario Ogden DO - Consult Narrative History of present illness: Mr. Enriquez is a 66 year old male - Constitutional Vitals: Temp Pulse Resp BP Pulse Ox 98.5 F 86 16 138/92 95 02/01/17 15:18 02/01/17 15:18 02/01/17 17:04 02/01/17 15:18 02/01/17 17:04 Results - Labs CBC & Chem 7: 02/01/17 05:36 02/01/17 05:36 Labs: Last Result Calcium 8.8 mg/dL (8.6-10.8) 02/01/17 05:36 Troponin I 0.00 ng/mL (0-0.03) 01/29/17 14:00 Entire Visit Hgb 11.3 g/dL (12.9-16.9) L D 02/01/17 05:36 Hct 34.0 % (37.5-50.1) L 02/01/17 05:36 Total Bilirubin 0.3 mg/dL (0.2-1.2) 01/29/17 14:00 AST 11 Units/L (5-34) 01/29/17 14:00 ALT 10 Units/L (0-55) 01/29/17 14:00 Lipase 13 Units/L (8-78) 01/29/17 14:00 - Attending Attestation I examined this patient and my medical decision-making was reviewed with the Resident Physician. I agree with the documented findings, disposition and treatment plan as described except to the extent set forth below. Patient with the abnormal imaging of the esophagus rule out esophagitis/mass. EGD in the morning
--- NOTE | 2017-02-01 15:13 | Internal Med Progress Note ---
<Rayshawn Ramsey - Last Filed: 02/01/17 15:10> Date of Encounter: 02/01/17 Time of Encounter: 15:11 - Assessment and plan (1) Acute exacerbation of chronic obstructive airways disease Current Visit: Yes Status: Acute Assessment and plan: states sob improved. continue abx, steroids levaquin, nebulizers and inhalers. Still requiring O2 supplementation. continue mucinex, symbicort improved breath sounds today on lung exam. (2) Weight loss Current Visit: Yes Status: Acute Assessment and plan: reports 60 pound weight loss. last colonoscopy was 7 years ago and states there were no polyps found reports decreased appetite. CTA shows mural thickening of esophagus. Denies previous EGD. Consult GI. EGD tomorrow ensure tid. npo midnight (3) Buerger disease Current Visit: Yes Status: Acute Assessment and plan: hx of buerger disease b/l BKA no evidence of ulcers on fingers states he has not had any flare ups since 2000 continue cilostazol, palvix. continues to smoke. (4) Tobacco abuse Current Visit: Yes Status: Acute Assessment and plan: hx of tobacco abuse continues to smoke states he is smoking 4-6 cigarette. counseled on smoking cessation. (5) DVT prophylaxis Current Visit: Yes Status: Acute Assessment and plan: heparin SQ - Subjective Interval history: Shortness of breath improved however still requiring oxygen. Denies chest pain, palpitations, abdominal pain, N/V, LE pain. - Constitutional Vitals: Temp Pulse Resp BP Pulse Ox 97.6 F 77 12 123/65 99 02/01/17 11:34 02/01/17 11:34 02/01/17 11:34 02/01/17 11:34 02/01/17 11:34 General appearance: Present: A&O X 3 - Respiratory Respiratory exam: Present: decreased breath sounds, rhonchi (RLL other garcia clear ) - Cardiovascular Cardiovascular exam: Present: RRR, +S1, +S2. Absent: diastolic murmur, gallop, rubs, systolic murmur - GI/Abdominal GI/Abdominal exam: Present: normal bowel sounds, soft, no peritoneal signs. Absent: distended, tenderness - Extremities Exam Additional comments: b/l BKA - Psychiatric Psychiatric exam: Present: normal affect, normal mood Internal Medicine: Result - Labs CBC & Chem 7: 02/01/17 05:36 02/01/17 05:36 Labs: Short CBC 02/01/17 Range/Units 05:36 WBC 17.8 H D (4.3-11.1) K/mcL Hgb 11.3 L D (12.9-16.9) g/dL Hct 34.0 L (37.5-50.1) % Plt Count 236 (140-400) K/mcL Neutrophils # 16.0 H (1.6-8.9) K/mcL BMP 02/01/17 05:36 Sodium 141 Potassium 4.7 H Chloride 107 Carbon Dioxide 26 BUN 20 Creatinine 0.72 Glucose 132 H Calcium 8.8 Consult Discharge Plan - Plan Referrals: Gwendolyn Hamilton MD [Primary Care Provider] - <Mario Ogden - Last Filed: 02/01/17 17:40> Date of Encounter: 02/01/17 - Assessment and plan (1) Acute respiratory failure with hypoxia Current Visit: Yes Status: Acute (2) Acute exacerbation of chronic obstructive airways disease Current Visit: Yes Status: Acute (3) Buerger disease Current Visit: Yes Status: Acute (4) Weight loss Current Visit: Yes Status: Acute (5) Tobacco abuse Current Visit: Yes Status: Acute - Constitutional Vitals: Temp Pulse Resp BP Pulse Ox 98.5 F 86 16 138/92 95 02/01/17 15:18 02/01/17 15:18 02/01/17 17:04 02/01/17 15:18 02/01/17 17:04 Internal Medicine: Result - Labs CBC & Chem 7: 02/01/17 05:36 02/01/17 05:36 Labs: Short CBC 02/01/17 Range/Units 05:36 WBC 17.8 H D (4.3-11.1) K/mcL Hgb 11.3 L D (12.9-16.9) g/dL Hct 34.0 L (37.5-50.1) % Plt Count 236 (140-400) K/mcL Neutrophils # 16.0 H (1.6-8.9) K/mcL BMP 02/01/17 05:36 Sodium 141 Potassium 4.7 H Chloride 107 Carbon Dioxide 26 BUN 20 Creatinine 0.72 Glucose 132 H Calcium 8.8 - Attending Attestation I examined this patient and my medical decision-making was reviewed with the Resident Physician on 02/01/17. I agree with the documented findings, disposition and treatment plan as described except to the extent set forth below. Mr Enriquez is currently admitted for acute hypoxic resp failure and COPD exac. He remains moderate to high risk due to potential for worsening resp status Mr Enriquez has recurrent headache. Norflex helped some last night. No fever or chills. Breathing somewhat better. To have endoscopy tomorrow due to abnormal CT and weight loss. Exam Alert. Comfortable Heart reg Scant end exp wheeze Abd soft I/P 1. Hypoxia 2. COPD 3. Weight loss Further diagnoses and plan as above.
[2017-02-01] MEDS: Orphenadrine 60 MG/2 ML VIAL IVP PRN (17:38)
[2017-02-01] MEDS: diazePAM 10 MG TABLET PO SCH (20:26)
[2017-02-02] MEDS: traMADol 50 MG TABLET PO PRN ×3 (02:49→21:53)
[2017-02-02] MEDS: Ipratropium/Albuterol Neb 3 ML IH SCH ×6 (04:25→23:17)
[2017-02-02] MEDS: Acetylcysteine 10% 2 ML INHSOL IH SCH ×6 (04:25→23:17)
[2017-02-02] MEDS: *HR* Heparin 5,000 UNIT/ML VIAL SQ SCH ×3 (04:49→21:55)
[2017-02-02 07:11] LABS: Basophils % 0.2 %; Eosinophils % 0.1 %; Hematocrit 34.7 % (37.5-50.1); Hemoglobin 11.7 g/dL (12.9-16.9); Immature Granulocytes % 1.6 % (0-4); Lymphocytes # 3.6 K/mcL (0.6-4.6); Lymphocytes % 23.8 %; Mean Corpuscular HGB Conc 33.7 g/dL (31.6-35.5); Mean Corpuscular Hemoglobin 32.6 pg (28.0-33.3); Mean Corpuscular Volume 96.7 fL (83.0-100.0); Mean Platelet Volume 10.6 fL (9.4-12.4); Monocytes % 6.9 %; Neutrophils # 10.2 K/mcL (1.6-8.9); Platelet Count 242 K/mcL (140-400); Red Blood Count 3.59 M/mcL (4.19-5.50); Red Cell Distribution Width 14.4 % (11.5-14.5); Segmented Neutrophils % 67.4 %
[2017-02-02] MEDS: Budesonide/Formoterol 160/4.5 MDI IH SCH ×2 (07:58→20:15)
[2017-02-02] MEDS: *HR* OxyCODONE ER (12 HR) 20 MG TABLET PO SCH ×2 (09:23→18:25)
[2017-02-02] MEDS: Levofloxacin 750 MG/150 ML 750 MG/150 ML BAG IVPB SCH (09:24)
[2017-02-02] MEDS: predniSONE 20 MG TABLET PO SCH (09:24)
--- NOTE | 2017-02-02 09:39 | Internal Med Progress Note ---
<Kezia Shields - Last Filed: 02/02/17 09:37> Date of Encounter: 02/02/17 Time of Encounter: 09:37 - Assessment and plan (1) Acute exacerbation of chronic obstructive airways disease Current Visit: Yes Status: Acute Assessment and plan: shortness of breath continues to improve. continue levaquin, prednisone, duoneb, symbicort, albuterol inhaler, and mucinex (2) Weight loss Current Visit: Yes Status: Acute Assessment and plan: reports 60 pound weight loss. last colonoscopy was 7 years ago and states there were no polyps found reports decreased appetite. CTA shows mural thickening of esophagus. Denies previous EGD. GI on board, appreciate recommendations EGD today ensure tid. (3) Buerger disease Current Visit: Yes Status: Acute Assessment and plan: hx of buerger disease b/l BKA no evidence of ulcers on fingers states he has not had any flare ups since 2000 continue cilostazol, plavix. continues to smoke. (4) Tobacco abuse Current Visit: Yes Status: Acute Assessment and plan: nicotine patch (5) DVT prophylaxis Current Visit: Yes Status: Acute Assessment and plan: heparin SQ - Subjective Interval history: Patient ready for EGD this morning. Still feels as if he has some work to do on improving his breathing. - Constitutional Vitals: Temp Pulse Resp BP Pulse Ox 98.5 F 97 14 125/75 94 02/02/17 06:40 02/02/17 06:40 02/02/17 07:59 02/02/17 06:40 02/02/17 07:59 General appearance: Present: cooperative, A&O X 3, pleasant, answers questions appropriately - Head Head exam: Present: atraumatic, normocephalic - Eye Eye exam: Present: PERRL, conjuntiva pink, sclera anicteric Pupils: Present: PERRL - Neck Neck exam general surgery: Present: supple, trachea midline - Respiratory Respiratory exam: Present: rales (right sided), wheezes (end-expiratory throughout) - Cardiovascular Cardiovascular exam: Present: RRR, +S1, +S2. Absent: diastolic murmur, gallop, rubs, systolic murmur - GI/Abdominal GI/Abdominal exam: Present: normal bowel sounds, soft, no peritoneal signs. Absent: distended, tenderness - Extremities Exam Additional comments: bilateral BKA, well-healed incisions - Neurological Exam Neurological exam: Present: alert, oriented X3. Absent: facial droop, speech deficit - Skin Skin exam: Present: dry, intact, warm Internal Medicine: Result - Labs CBC & Chem 7: 02/02/17 06:48 02/01/17 05:36 Labs: Short CBC 02/02/17 Range/Units 06:48 WBC 15.1 H (4.3-11.1) K/mcL Hgb 11.7 L (12.9-16.9) g/dL Hct 34.7 L (37.5-50.1) % Plt Count 242 (140-400) K/mcL Neutrophils # 10.2 H (1.6-8.9) K/mcL Consult Discharge Plan - Plan Referrals: Gwendolyn Hamilton MD [Primary Care Provider] - <Mario Ogden - Last Filed: 02/02/17 17:00> Date of Encounter: 02/02/17 - Assessment and plan (1) Acute respiratory failure with hypoxia Current Visit: Yes Status: Acute (2) Acute exacerbation of chronic obstructive airways disease Current Visit: Yes Status: Acute (3) Buerger disease Current Visit: Yes Status: Acute (4) Weight loss Current Visit: Yes Status: Acute (5) Tobacco abuse Current Visit: Yes Status: Acute - Constitutional Vitals: Temp Pulse Resp BP Pulse Ox 98.7 F 98 16 140/82 93 02/02/17 16:46 02/02/17 16:46 02/02/17 16:46 02/02/17 16:46 02/02/17 16:46 Internal Medicine: Result - Labs CBC & Chem 7: 02/02/17 06:48 02/01/17 05:36 Labs: Short CBC 02/02/17 Range/Units 06:48 WBC 15.1 H (4.3-11.1) K/mcL Hgb 11.7 L (12.9-16.9) g/dL Hct 34.7 L (37.5-50.1) % Plt Count 242 (140-400) K/mcL Neutrophils # 10.2 H (1.6-8.9) K/mcL - Attending Attestation I examined this patient and my medical decision-making was reviewed with the Resident Physician on 02/02/17. I agree with the documented findings, disposition and treatment plan as described except to the extent set forth below. Mr Enriquez is currently admitted for COPD exacerbation. He is to have EGD to evaluate abnormal esophagus on CT. He remains moderate to high risk due to potential for worsening respiratory status. Mr Enriquez is resting at this time. He is to have EGD today. No fever or chills. No CP. Still with intermittent headache. Exam Alert. Comfortable Mucus membranes dry Heart reg Scant wheeze Abd soft I/P 1. Hypoxia 2. COPD 3. Weight loss Further diagnoses and plan as above.
[2017-02-02] MEDS ORDERED: Sennosides 8.6 MG TABLET PO PRN (09:48)
[2017-02-02] MEDS: Orphenadrine 60 MG/2 ML VIAL IVP PRN (13:05)
[2017-02-02] MEDS ORDERED: *HR* Midazolam HCl 5 MG/5 ML VIAL IVP ONE (16:19)
[2017-02-02] MEDS ORDERED: *HR* FentaNYL (PF) 100 MCG/2 ML VIAL ONE (16:21)
[2017-02-02] MEDS ORDERED: 0.9 % Sodium Chloride 1,000 ML IVC SCH (17:00)
[2017-02-02] MEDS ORDERED: *HR* FentaNYL (PF) 100 MCG/2 ML VIAL IVP PRN (17:21)
[2017-02-02] MEDS ORDERED: *HR* Midazolam HCl 5 MG/5 ML VIAL IVP PRN (17:21)
[2017-02-02] MEDS ORDERED: Tetracaine/Benzocaine/Butamben 200MG/SPRAY (100SPY/BOT) MM ONE (17:21)
--- NOTE | 2017-02-02 17:22 | Pre-Sedation Evaluation ---
Pre-sedation evaluation - Pre-sedation checklist Date of procedure: 02/02/17 Procedure: egd Recent Vitals: Last Vital Signs Temp 98.7 F 02/02/17 16:46 Pulse 104 02/02/17 17:19 Resp 16 02/02/17 17:19 BP 125/83 02/02/17 17:19 Pulse Ox 93 02/02/17 17:19 H&P (including ROS) documented in medical record: Yes Previous reaction to sedatives/anesthetics: No Dietary Status: NPO after Midnight Dentition: No loose teeth or bridges ASA Classification *see protocol: CLASS III-Severe systemic disease Plan of Care: Pt appropriate candidate for procedure/moderate/conscious sedation , Risks/benefits of procedure/sedation discussed w/ patient/family
[2017-02-02] MEDS: diazePAM 10 MG TABLET PO SCH (21:54)
[2017-02-03] MEDS: Ipratropium/Albuterol Neb 3 ML IH SCH ×4 (03:40→15:39)
[2017-02-03] MEDS: Acetylcysteine 10% 2 ML INHSOL IH SCH ×4 (03:41→15:39)
[2017-02-03] MEDS: *HR* Heparin 5,000 UNIT/ML VIAL SQ SCH ×2 (05:40→14:02)
[2017-02-03] MEDS: Orphenadrine 60 MG/2 ML VIAL IVP PRN (05:48)
[2017-02-03] MEDS: Budesonide/Formoterol 160/4.5 MDI IH SCH (08:02)
[2017-02-03 08:05] VITALS: BP 118/64
[2017-02-03] MEDS: predniSONE 20 MG TABLET PO SCH (08:49)
[2017-02-03] MEDS: *HR* OxyCODONE ER (12 HR) 20 MG TABLET PO SCH (08:49)
[2017-02-03] MEDS ORDERED: levoFLOXacin 750 MG TABLET PO SCH (09:00)
[2017-02-03] MEDS ORDERED: Metoprolol XL (24 HR) Succ 50 MG TAB.ER.24H PO SCH (10:15)
--- NOTE | 2017-02-03 11:10 | Discharge Summary ---
<Rayshawn Ramsey - Last Filed: 02/03/17 15:24> Date of Encounter: 02/03/17 - Discharge Diagnosis (1) Acute exacerbation of chronic obstructive airways disease Status: Acute (2) Weight loss Status: Acute (3) Buerger disease Status: Acute (4) Tobacco abuse Status: Acute (5) DVT prophylaxis Status: Acute - Discharge Medications Prescriptions: Ipratropium/Albuterol Neb [Duoneb] 3 ml IH Q6HR PRN #100 vial.neb PRN Reason: Dyspnea Albuterol Sulfate [Ventolin Hfa] 2 puff IH Q4H PRN #1 hfa.aer.ad PRN Reason: Shortness Of Breath Budesonide/Formoterol 160/4.5 [Symbicort 160/4.5] 2 puff IH BIDR #1 inhaler GuaiFENesin ER [Mucinex] 1,200 mg PO BID PRN #60 tbbp.12hr PRN Reason: mucus levoFLOXacin [Levaquin] 750 mg PO DAILY #5 tablet predniSONE [PredniSONE] See Taper PO DAILY #18 tablet Home Medications: Cilostazol [Pletal] 100 mg PO BID 11/03/16 [History] Clopidogrel [Plavix] 75 mg PO DAILY 11/03/16 [History] Tizanidine HCl 4 mg PO Q8H PRN 11/03/16 [History] diazePAM [Valium] 20 mg PO HS 11/03/16 [History] Doxepin HCl 50 - 100 mg PO HS 12/27/16 [History] Duloxetine HCl [Cymbalta] 60 mg PO DAILY 12/27/16 [History] Lactose-Reduced Food [Ensure Liquid] 1 bottle PO TID 12/27/16 [History] Losartan Potassium [Cozaar] 100 mg PO DAILY 12/27/16 [History] Metoprolol Succinate 100 mg PO DAILY 12/27/16 [History] Oxycodone HCl [Oxycontin] 20 mg PO QAM 12/27/16 [History] Oxycodone HCl [Oxycontin] 40 mg PO QPM 12/27/16 [History] Polyethylene Glycol 3350 [MiraLAX] 17 gm PO DAILY 12/27/16 [History] Albuterol Sulfate [Ventolin Hfa] 2 puff IH Q4H PRN #1 hfa.aer.ad 02/03/17 [Rx] Budesonide/Formoterol 160/4.5 [Symbicort 160/4.5] 2 puff IH BIDR #1 inhaler 09/15 [Rx] GuaiFENesin ER [Mucinex] 1,200 mg PO BID PRN #60 tbbp.12hr 02/03/17 [Rx] Ipratropium/Albuterol Neb [Duoneb] 3 ml IH Q6HR PRN #100 vial.neb 02/03/17 [Rx] levoFLOXacin [Levaquin] 750 mg PO DAILY #5 tablet 02/03/17 [Rx] predniSONE [PredniSONE] See Taper PO DAILY #18 tablet 02/03/17 [Rx] Allergies/Adverse Reactions: 3 Allergy/AdvReac Type Severity Reaction Status Date / Time aspirin Allergy Hives Verified 01/29/17 13:49 buprenorphine Allergy Difficulty Verified 01/29/17 13:50 Swallowing Penicillins Allergy Hives Verified 01/29/17 13:49 Date of admission: 01/29/17 21:15 Primary care physician: Gwendolyn Hamilton, Consults: 01/31/17 15:22 Consult to Gastroenterology [CONS] Routine Consulting Provider: [facility] Reason for Consult: weight loss, CTA shows mural thickening of gastric cardia. Call Completed: Yes - Patient Status Disposition: Home, Self-Care Condition: Fair - Discharge Instructions Instructions: Albuterol (By breathing), Prednisone (By mouth), Guaifenesin (By mouth), Levofloxacin (By mouth), Budesonide (By breathing), Viral Pneumonia (DC) , Viral Pneumonia (GEN), Upper Gastrointestinal Endoscopy (DC), Cigarette Smoking and Your Health, Operating Room Specialist (GEN) Follow Up With: Gwendolyn Hamilton MD [Primary Care Provider] - (patient will need screening colonoscopy ) - Diet and Activity Activity: increase activity as tolerated Hospital course: Mr. Enriquez is a 66 year old male - Time Spent with Patient Total time spent providing and/or coordinating discharge services: - Constitutional Vitals: Temp Pulse Resp BP Pulse Ox 98.2 F 79 17 118/64 95 02/03/17 05:09 02/03/17 08:00 02/03/17 11:08 02/03/17 08:00 02/03/17 11:08 <Kezia Shields - Last Filed: 02/04/17 06:27> Date of Encounter: 02/04/17 Time of Encounter: 10:50 - Discharge Diagnosis (1) Acute exacerbation of chronic obstructive airways disease Priority: Primary Status: Acute (2) Weight loss Priority: Secondary Status: Acute (3) Buerger disease Priority: Secondary Status: Acute (4) Tobacco abuse Priority: Secondary Status: Acute (5) DVT prophylaxis Priority: Secondary Status: Acute Date of admission: 01/29/17 21:15 Primary care physician: Gwendolyn Hamilton, Consults: 01/31/17 15:22 Consult to Gastroenterology [CONS] Routine Consulting Provider: Gastroenterology [facility] Reason for Consult: weight loss, CTA shows mural thickening of gastric cardia. Call Completed: Yes Discharging clinician: Kezia Shields Anticipated date of discharge: 02/03/17 - Patient Status Functional capacity at discharge: independent ambulation Overall status at discharge: patient is progressing back to baseline - Diet and Activity Diet: low fat, low cholesterol Interval History: Patient is doing well today. Breathing improves daily. He is still using oxygen and was not on oxygen at home prior to admission. Hospital course: Mr. Enriquez is a 66 year old male admitted for COPD exacerbation with a few month history of progressive shortness of breath. He also had a 50 lb weight loss over the previous 9 months. He was treated for COPD exacerbation with supplemental O2, levaquin, prednisone, duonebs, symbicort, mucinex, and albuterol. His CTA chest showed mural thickening of esophagus - EGD was normal. He will follow-up outpatient with GI for screening colonoscopy. - Time Spent with Patient Total time spent providing and/or coordinating discharge services: - Constitutional Vitals: Temp Pulse Resp BP Pulse Ox 98.2 F 79 17 118/64 99 02/03/17 05:09 02/03/17 08:00 02/03/17 08:00 02/03/17 08:00 02/03/17 08:00 General appearance: Present: cooperative, A&O X 3, pleasant, answers questions appropriately - Head Head exam: Present: atraumatic, normocephalic - Eye Eye exam: Present: PERRL, conjuntiva pink, sclera anicteric Pupils: Present: PERRL - Neck Neck exam general surgery: Present: supple, trachea midline - Respiratory Respiratory exam: Present: wheezes (end-expiratory). Absent: respiratory distress - Cardiovascular Cardiovascular exam: Present: RRR, +S1, +S2. Absent: diastolic murmur, gallop, rubs, systolic murmur - GI/Abdominal GI/Abdominal exam: Present: normal bowel sounds, soft, no peritoneal signs. Absent: distended, tenderness - Extremities Exam Extremities exam: Present: normal capillary refill, warm. Absent: pedal edema Additional comments: bilateral BKA - Neurological Exam Neurological exam: Present: alert, CN II-XII intact, oriented X3. Absent: facial droop, speech deficit - Skin Skin exam: Present: dry, intact, warm <Mario Ogden - Last Filed: 02/04/17 18:05> Date of Encounter: 02/03/17 - Discharge Diagnosis (1) Acute respiratory failure with hypoxia Priority: Primary Status: Acute (2) Acute exacerbation of chronic obstructive airways disease Status: Acute (3) Buerger disease Status: Acute (4) Weight loss Status: Acute (5) Tobacco abuse Status: Acute Date of admission: 01/29/17 21:15 Primary care physician: Gwendolyn Hamilton, Consults: 01/31/17 15:22 Consult to Gastroenterology [CONS] Routine Consulting Provider: [facility] Reason for Consult: weight loss, CTA shows mural thickening of gastric cardia. Call Completed: Yes Hospital course: Mr. Enriquez is a 66 year old male - Time Spent with Patient Total time spent providing and/or coordinating discharge services: 38min - Constitutional Vitals: Temp Pulse Resp BP Pulse Ox 98.2 F 79 17 118/64 98 02/03/17 05:09 02/03/17 08:00 02/03/17 15:40 02/03/17 08:00 02/03/17 15:40 - Attending Attestation I examined this patient and my medical decision-making was reviewed with the Resident Physician on 02/03/17. I agree with the documented findings, disposition and treatment plan as described except to the extent set forth below. Mr Enriquez has been admitted for acute exac COPD. He has improved with treatment and is ready for discharge home. He is afebrile and vitals stable. Exam Alert. Comfortable Heart reg No wheeze Plan D/C home Follow with PCP.
[2017-02-03] MEDS: traMADol 50 MG TABLET PO PRN (14:04)
== END 2017-02-03 18:51 | disposition home or self-care (01) | DRG 140 ==
LOC: EMEROO 13:45 → 2NENU 13:45
PROVIDERS: ADMIT Internal Medicine; ATTEND Internal Medicine